=== PATIENT | male | born 1995 | race Caucasian/White ===

== ENCOUNTER 2023-10-29 16:06 | Observation (INO) | payer OTHER ==
[2023-10-29] MEDS ORDERED: Sodium Chloride 0.9% 1000 ML 1,000 ML IV STA (16:58)
[2023-10-29] MEDS ORDERED: PIPERACILLIN/TAZOBACTAM 3.375 GM in Sodium Chloride 100ML MINI-BAG PLUS 100 ML IV ONE (16:59)
--- NOTE | 2023-10-29 17:08 | ERPHSYRPT ---
- History of Present Illness Historian: patient Exam Limitations: no limitations Patient Subjective Stated Complaint: appendicitis Triage Nursing Assessment: Pt brought self to the ER, hypertensive, denies pain at this time, pulses normal, skin n/w/d, slight pain with palpatation, no difficulty breathing, doesn't appear to be in any distress Hx Influenza Vaccination/Date Given: No Hx Pneumococcal Vaccination/Date Given: No <LORE VERMA - Last Filed: 10/29/23 17:06> <HERRERA COOMBS - Last Filed: 10/29/23 17:41> - History of Present Illness Time Seen by Provider: 10/29/23 16:10 Physician History: 28-year-old is sent in ER from urgent care for CT abdomen pelvis positive for mild acute/early appendicitis. Patient reports having off-and-on right-sided abdominal pain for the last 5 or 6 days with some bloating sensation. No nausea or vomiting. Denies any diarrhea or constipation. No UTI symptoms. No fever or chills reported. Patient reports minimal pain on the right side currently. (LORE VERMA) Allergies/Adverse Reactions: No Known Drug Allergies Allergy (Verified 10/29/23 16:26) Home Medications: No Reportable Medications [No Reported Medications] 10/29/23 [History] Travel Risk - International Travel Have you traveled outside of the country in past 3 weeks: No - Coronavirus Screening Are you exhibiting any of the following symptoms?: No Close contact with a COVID-19 positive Pt in past 14-21 Days: No - Vaccine Status Have you recieved a Covid-19 vaccination: No <LORE VERMA - Last Filed: 10/29/23 17:06> - Review of Systems Constitutional: No Symptoms Eyes: No Symptoms Ears, Nose, & Throat: No Symptoms Respiratory: No Symptoms Cardiac: No Symptoms Abdominal/Gastrointestinal: Abdominal Pain Genitourinary Symptoms: No Symptoms Musculoskeletal: No Symptoms Skin: No Symptoms Neurological: No Symptoms Psychological: No Symptoms <LORE VERMA - Last Filed: 10/29/23 17:06> - Past Medical History Pertinent Past Medical History: No Neurological History: No Pertinent History Cardiac History: No Pertinent History Respiratory History: Asthma Endocrine Medical History: No Pertinent History Musculoskeletal History: No Pertinent History - Past Surgical History Past Surgical History: Yes Other Surgical History: mole biopsy on chest. gynacomastia surgery. wisdom teeth - Social History Smoking Status: Never smoker Exposure to second hand smoke: No Drug Use: none Patient Lives Alone: No <BAYRONLORE Kessler - Last Filed: 10/29/23 17:06> - Physical Exam General Appearance: no apparent distress, alert Eye Exam: PERRL/EOMI Ears, Nose, Throat Exam: normal ENT inspection Neck Exam: normal inspection, non-tender, supple, full range of motion Respiratory Exam: normal breath sounds, lungs clear Cardiovascular Exam: regular rate/rhythm, normal heart sounds Gastrointestinal/Abdomen Exam: soft, normal bowel sounds, tenderness (Mild tenderness right flank/right upper quadrant/right lower quadrant), No guarding, No rebound Back Exam: normal inspection, normal range of motion Extremity Exam: normal inspection, normal range of motion Neurologic Exam: alert, oriented x 3, cooperative, chief technician II-XII nml as tested Skin Exam: normal color SpO2 Interpretation: normal SpO2: 100 O2 Delivery: Room Air <LORE VERMA - Last Filed: 10/29/23 17:06> - Nursing Vital Signs Nursing Vital Signs: Initial Vital Signs Temperature 98.0 F 10/29/23 16:08 Pulse Rate 71 10/29/23 16:08 Blood Pressure 145/82 10/29/23 16:08 O2 Sat by Pulse Oximetry 100 10/29/23 16:08 Pain Scale Pain Intensity 0 Ordered Tests: Active Orders 24 hr Category Date Time Status IV Insertion STAT Care 10/29/23 16:58 Active NPO (ED) STAT Care 10/29/23 16:58 Active CBC W DIFF Stat Lab 10/29/23 17:00 Received CMP Stat Lab 10/29/23 17:00 Received LIPASE Stat Lab 10/29/23 17:00 Received UA W/RFX UR CULTURE Stat Lab 10/29/23 16:58 Ordered Medication Summary Generic Name Dose Route Start Last Admin Trade Name Freq PRN Reason Stop Dose Admin Sodium Chloride 1,000 mls @ 999 mls/hr 10/29/23 16:58 10/29/23 17:21 Sodium Chloride 0.9% 1000 Ml IV 10/29/23 17:58 999 mls/hr .Q1H1M STA Administration Discontinued Medications Generic Name Dose Route Start Last Admin Trade Name Freq PRN Reason Stop Dose Admin Piperacillin Sod/Tazobactam 100 mls @ 200 mls/hr 10/29/23 16:59 10/29/23 17:21 Sod 3.375 gm/ Sodium Chloride IV 10/29/23 17:28 200 mls/hr STAT ONE Administration Sodium Chloride Confirm 10/29/23 17:10 Sodium Chloride 100ml Mini-Bag Plus Administered 10/29/23 17:11 Dose 100 mls @ ud IV .STK-MED ONE Sodium Chloride Confirm 10/29/23 17:10 Sodium Chloride 0.9% 1000 Ml Administered 10/29/23 17:11 Dose 1,000 mls @ ud .ROUTE .STK-MED ONE Piperacillin Sod/Tazobactam Sod Confirm 10/29/23 17:09 Piperacillin/Tazobactam Sodium 3.375 Gm Vial Administered 10/29/23 17:10 Dose 3.375 gm IV .STK-MED ONE - Progress Progress: unchanged Discussed with : Ben Counseled pt/family regarding: lab results, diagnosis, rad results <HERRERA COOMBS - Last Filed: 10/29/23 17:41> - Progress Progress Note: 10/29/23 17:37 This patient was checked out to me at approximately 5:15 PM on 10/29/2023. I reviewed the patient's chart. Laboratory results pending. The CT scan of the abdomen pelvis without contrast that was performed earlier today from the urgent care was interpreted by the radiologist and I reviewed the impression. Impression states prominent appendix with minimal periappendiceal stranding favoring mild/early appendicitis. I spoke with Dr. Star Seaman. He is the general surgeon on-call. I reviewed the patient history, chief complaint and the findings on the CT scan of abdomen pelvis. He states that we can admit to him. We will place him on the Med[facility] floor. Will keep him n.p.o. He will be contacting the night warehouse manager with surgery time (HERRERA COOMBS) Medical Desision Making - Diagnostic Testing Diagnostic test were ordered, analyzed, and reviewed by me: Yes Radiological Interpretation: Reviewed by me, Teleradiologist Report - Risk of complications The pt has a high risk of morbidity or mortality based on: Decision regarding hospitilization or escalation of hosp level of care <HERRERA COOMBS - Last Filed: 10/29/23 17:41> <LORE VERMA - Last Filed: 10/29/23 17:06> - Departure Departure Disposition: Observation Critical Care Time: No <HERRERA COOMBS - Last Filed: 10/29/23 17:41> - Departure Clinical Impression: Acute appendicitis Condition: Stable Referrals: ROMERO MA MD [Primary Care Provider] - Follow up/PCP as directed
[2023-10-29] MEDS ORDERED: PIPERACILLIN/TAZOBACTAM IV ONE (17:09)
[2023-10-29] MEDS ORDERED: Sodium Chloride 0.9% 1000 ML 1,000 ML ONE ×2 (17:10→23:04)
[2023-10-29] MEDS ORDERED: Sodium Chloride 100ML MINI-BAG PLUS 100 ML IV ONE (17:10)
[2023-10-29 17:31] LABS: Absolute Neutrophil Ct (ANC) 2.83 x10^3/uL (1.4-6.9); Basophil (Absolute #) 0.05 x10^3/uL (0-0.4); Eosinophil % 2.7 % (0.00-5.0); Eosinophil (Absolute #) 0.13 x10^3/uL (0-0.5); Hematocrit 47.5 % (42-50); Hemoglobin 16.7 g/dL (12.5-18.0); IMMATURE GRAN # 0.02 x10^3u/L (0.00-0.03); IMMATURE GRAN % 0.4 % (0.00-0.4); Lymphocyte (Absolute #) 1.46 x10^3/uL (1.0-4.6); Lymphocytes % 30.2 % (24.0-44.0); Mean Cell Volume 88.1 fL (78-100); Mean Corpuscular Hgb Concent. 35.2 g/dL (32-36); Mean Platelet Volume 9.6 fL (7.5-11.0); Monocyte (Absolute #) 0.34 x10^3/uL (0.0-1.3); Neutrophil % 58.7 % (36.0-66.0); Platelet Count 221 x10^3/uL (150-450); Red Blood Count 5.39 x10^6/uL (4.1-5.6); Red Cell Distribution Width 12.2 % (11.5-14.0); White Blood Count 4.8 x10^3/uL (4.0-10.5)
[2023-10-29 17:40] LABS: ALBUMIN 4.7 g/dL (3.5-5.0); ANION GAP 12.3 MEQ/L (5-15); BILIRUBIN,TOTAL 0.8 mg/dL (0.2-1.3); Calcium 9.8 mg/dL (8.4-10.2); Creatinine 1 1.61 mg/dL (0.66-1.25); EST GLOMERULAR FILTRATION RATE 59.7 ML/MIN; Potassium 3.8 mmol/L (3.5-5.1)
[2023-10-29 19:44] LABS: Appearance Clear (Clear); Bacteria None Seen /HPF (None Seen); Bilirubin Negative (Negative); Blood Negative (Negative); Epithelial Cells None Seen /HPF (None Seen); Glucose, Urine Negative (Negative); Hyaline Casts NONE SEEN /LPF (0-2); Ketones 15 (Negative); Leukocyte Esterase Negative (Negative); Nitrite Negative (Negative); Ph 6.5 (4.6-8.0); Protein,Urine Dip Negative (Negative); RBC 0-2 /HPF (0-5); Specific Gravity 1.015 (1.005-1.030); Urobilinogen 0.2 mg/dL (0.2); WBC 0-2 /HPF (0-5)
[2023-10-29 19:45] LABS: ADD URINE CULTURE? NO (NO)
[2023-10-29] MEDS ORDERED: Sensorcaine 0.25% 10 ML ONE ×2 (19:46→19:49)
[2023-10-29] MEDS ORDERED: Lactated Ringers 1,000 ML IV ONE ×2 (20:05→20:14)
[2023-10-29] MEDS ORDERED: Versed 2 MG/2 ML Injection ONE (20:06)
[2023-10-29] MEDS ORDERED: DEXMEDETOMIDINE 80 MCG/20ML-NS IV ONE (20:06)
[2023-10-29] MEDS ORDERED: TORAdol 30 mg Injection ONE (20:06)
[2023-10-29] MEDS ORDERED: BRIDION 200MG/2ML IV ONE (20:06)
[2023-10-29] MEDS ORDERED: DIPRIVAN 200 MG/20 ML IV ONE (20:06)
[2023-10-29] MEDS ORDERED: Zofran 4 MG/2 ML VIAL ONE (20:06)
[2023-10-29] MEDS ORDERED: Zemuron 100 MG/10 ML ONE (20:06)
[2023-10-29] MEDS ORDERED: Decadron 4 MG INJ ONE (20:06)
[2023-10-29] MEDS ORDERED: Xylocaine-Mpf 2% 5 Ml Vial ONE (20:06)
[2023-10-29] MEDS ORDERED: SUBLIMAZE 100 MCG/2 ML ONE (20:07)
[2023-10-29] MEDS ORDERED: OFIRMEV 100 ML IV ONE (20:14)
[2023-10-29] MEDS ORDERED: Pre-Attached Lta Kit TP ONE (20:14)
[2023-10-29] MEDS ORDERED: MEFOXIN 2 GM PREMIX** 2 GM/50 ML ML IV ONE (20:38)
--- NOTE | 2023-10-29 20:42 | PCM.HP ---
History of Present Illness - Chief Complaint History of Present Illness: hx per chart review and d/w pt thursday ate fast food and had some mild abd pain. this waxed and waned with a little bloating. no n/v. no constipation no diarrhea. not really postprandial. talked to family and ecommended getting evaluated. ct with enlarged appendix with slight stranding around it. surg consulted. today he does have pain RLQ particularly when he presses on it or with certain activities. "- History of Present Illness Historian: patient Exam Limitations: no limitations Patient Subjective Stated Complaint: appendicitis Triage Nursing Assessment: Pt brought self to the ER, hypertensive, denies pain at this time, pulses normal, skin n/w/d, slight pain with palpatation, no difficulty breathing, doesn't appear to be in any distress Hx Influenza Vaccination/Date Given: No Hx Pneumococcal Vaccination/Date Given: No <LORE VERMA - Last Filed: 10/29/23 17:06> <HERRERA COOMBS - Last Filed: 10/29/23 17:41> - History of Present Illness Time Seen by Provider: 10/29/23 16:10 Physician History: 28-year-old is sent in ER from urgent care for CT abdomen pelvis positive for mild acute/early appendicitis. Patient reports having off-and-on right-sided abdominal pain for the last 5 or 6 days with some bloating sensation. No nausea or vomiting. Denies any diarrhea or constipation. No UTI symptoms. No fever or chills reported. Patient reports minimal pain on the right side currently. (LORE VERMA) Allergies/Adverse Reactions: No Known Drug Allergies Allergy (Verified 10/29/23 16:26) Home Medications: No Reportable Medications [No Reported Medications] 10/29/23 [History] Travel Risk - International Travel Have you traveled outside of the country in past 3 weeks: No - Coronavirus Screening Are you exhibiting any of the following symptoms?: No Close contact with a COVID-19 positive Pt in past 14-21 Days: No - Vaccine Status Have you recieved a Covid-19 vaccination: No <LORE VERMA - Last Filed: 10/29/23 17:06> - Review of Systems Constitutional: No Symptoms Eyes: No Symptoms Ears, Nose, & Throat: No Symptoms Respiratory: No Symptoms Cardiac: No Symptoms Abdominal/Gastrointestinal: Abdominal Pain Genitourinary Symptoms: No Symptoms Musculoskeletal: No Symptoms Skin: No Symptoms Neurological: No Symptoms Psychological: No Symptoms " Medications & Allergies Home Medications: Home Medication List No Reportable Medications [No Reported Medications] 10/29/23 [History Confirmed 10/29/23] Allergies/Adverse Reactions: Allergies Allergy/AdvReac Type Severity Reaction Status Date / Time No Known Drug Allergies Allergy Verified 10/29/23 16:26 - Past Medical History Past Medical History: No Neurological History: No Pertinent History Cardiac History: No Pertinent History Respiratory History: Asthma Endocrine Medical History: No Pertinent History Musculoskelatal History: No Pertinent History - Past Surgical History Past Surgical History: Yes Other Surgical History: mole biopsy on chest. gynacomastia surgery. wisdom teeth - Social History Smoking Status: Never smoker Exposure to second hand smoke: No Alcohol: Occasionally Drug Use: none - Physical Exam Vital Signs: Vital Signs - 24 hr Temp Pulse BP BP Pulse Ox 10/29/23 19:15 98.0 F 69 164/97 100 10/29/23 19:00 124/66 10/29/23 18:30 121/67 97 10/29/23 18:00 125/64 100 10/29/23 17:30 132/74 100 10/29/23 17:07 100 10/29/23 17:03 126/70 100 10/29/23 16:08 98.0 F 71 145/82 100 General Appearance: no apparent distress Neurologic Exam: alert, oriented x 3, cooperative Eye Exam: eyes nml inspection, No scleral icterus Neck Exam: normal inspection Respiratory Exam: No respiratory distress Cardiovascular Exam: regular rate/rhythm Gastrointestinal/Abdomen Exam: soft, tenderness Extremity Exam: normal inspection Skin Exam: warm, dry (abd rlq focal ttp no r/g.) Results - Labs Lab/Micro Results: Lab Results-Last 24 Hours 10/29/23 10/29/23 10/29/23 Range/Units 17:00 17:00 19:18 WBC 4.8 (4.0-10.5) x10^3/uL RBC 5.39 (4.1-5.6) x10^6/uL Hgb 16.7 (12.5-18.0) g/dL Hct 47.5 (42-50) % MCV 88.1 (78-100) fL MCH 31.0 (26-32) pg MCHC 35.2 (32-36) g/dL RDW 12.2 (11.5-14.0) % Plt Count 221 (150-450) x10^3/uL MPV 9.6 (7.5-11.0) fL Gran % 58.7 (36.0-66.0) % Immature Gran % (Auto) 0.4 (0.00-0.4) % Nucleat RBC Rel Count 0.0 (0.00-0.1) % Eos # (Auto) 0.13 (0-0.5) x10^3/uL Immature Gran # (Auto) 0.02 (0.00-0.03) x10^3u/L Absolute Lymphs (auto) 1.46 (1.0-4.6) x10^3/uL Absolute Monos (auto) 0.34 (0.0-1.3) x10^3/uL Absolute Nucleated RBC 0.00 (0.00-0.01) x10^3u/L Lymphocytes % 30.2 (24.0-44.0) % Monocytes % 7.0 (0.0-12.0) % Eosinophils % 2.7 (0.00-5.0) % Basophils % 1.0 (0.0-0.4) % Absolute Granulocytes 2.83 (1.4-6.9) x10^3/uL Basophils # 0.05 (0-0.4) x10^3/uL Sodium 137 (137-145) mmol/L Potassium 3.8 (3.5-5.1) mmol/L Chloride 100 (98-107) mmol/L Carbon Dioxide 28 (22-30) mmol/L Anion Gap 12.3 (5-15) MEQ/L BUN 18 (9-20) mg/dL Creatinine 1.61 H (0.66-1.25) mg/dL Estimated GFR 59.7 ML/MIN Glucose 86 (74-106) mg/dL Calcium 9.8 (8.4-10.2) mg/dL Total Bilirubin 0.80 (0.2-1.3) mg/dL AST 27 (17-59) U/L ALT 25 (0-50) U/L Alkaline Phosphatase 78 (38-126) U/L Serum Total Protein 8.0 (6.3-8.2) g/dL Albumin 4.7 (3.5-5.0) g/dL Lipase 80 (23-300) U/L Urine Color Yellow (Yellow) Urine Appearance Clear (Clear) Urine pH 6.5 (4.6-8.0) Ur Specific [place] 1.015 (1.005-1.030) Urine Protein Negative (Negative) Urine Glucose (UA) Negative (Negative) mg/dL Urine Ketones 15 A (Negative) Urine Blood Negative (Negative) Urine Nitrite Negative (Negative) Urine Bilirubin Negative (Negative) Urine Urobilinogen 0.2 (0.2) mg/dL Ur Leukocyte Esterase Negative (Negative) U Hyaline Cast (Auto) NONE SEEN (0-2) /LPF Urine Microscopic RBC 0-2 (0-5) /HPF Urine Microscopic WBC 0-2 (0-5) /HPF Ur Epithelial Cells None Seen (None Seen) /HPF Urine Bacteria None Seen (None Seen) /HPF Urine Culture Reflexed NO (NO) Assessment/Plan (1) Acute appendicitis Current Visit: Yes Status: Acute Assessment & Plan: 28yo concerning for acute appendicitis. unusual about 5 day course of intermittent pain then with constant pain today, focal tenderness on exam and ct with dilated appendix with a little stranding. reg discussion with patient this seems to be a subacute presentation might not even be appendicitis could observe/do antibiotic treatment vs surgery with risks benefits either mary and he just wants to proceed with appendectomy. . Code(s): K35.80 - UNSPECIFIED ACUTE APPENDICITIS
[2023-10-29] MEDS ORDERED: ATROPINE SULFATE 1MG ONE (21:02)
[2023-10-29] MEDS ORDERED: Zofran 4 MG/2 ML VIAL IV PRN (22:28)
[2023-10-29] MEDS ORDERED: Sodium Chloride 0.9% 1000 ML 1,000 ML IV SCH (22:28)
[2023-10-29] MEDS ORDERED: MORPHINE SULFATE 4 MG INJ IV PRN (22:28)
[2023-10-29] MEDS ORDERED: FEVERALL 650 MG PR PRN (22:28)
[2023-10-29] MEDS ORDERED: Dextrose 5%-Lr IV Solution 1000 ML 1,000 ML IV SCH (23:45)
[2023-10-30] MEDS ORDERED: NORCO 5/325 MG PO PRN (00:02)
[2023-10-30 00:32] VITALS: RESP 16
[2023-10-30 07:21] VITALS: BP 110/61; PULSE 85; TEMP 98.8; O2SAT 98
--- NOTE | 2023-10-30 09:17 | OP ---
SURGERY DATE/TIME: 10/29/20232037 PREOPERATIVE DIAGNOSIS: Acute appendicitis. POSTOPERATIVE DIAGNOSES: Acute appendicitis, nonperforated. PROCEDURE: Laparoscopic appendectomy. SURGEON: Star Seaman M.D. ANESTHESIA: General. ESTIMATED BLOOD LOSS: Minimal. CONDITION: Patient condition stable. COMPLICATIONS: None. SPECIMEN: Appendix. HISTORY: The patient is a 28-year-old male with a five day history of some intermittent abdominal pain but then constant abdominal pain right lower quadrant, presented to the emergency department. He had tenderness on exam in right lower quadrant without peritonitis. CT scan showed a dilated appendix and some stranding. Discussed with the patient this is concerning for appendicitis. His clinical course is a little atypical for acute appendicitis and could be more subacute. Discussed with him the risk of infection, bleeding, injury to nearby structure, hernia, negative examination, possible of being nonoperative and he elected to proceed with appendectomy. FINDINGS: Dilated tip of the appendix with a normal base, no perforation. DESCRIPTION OF PROCEDURE: The patient was brought to the operating room. General anesthesia was induced, routinely positioned, prepped and draped. Time out was performed. He received preoperative antibiotic. The Veress needle inserted in left upper quadrant. Pneumoperitoneum established. A 12 mm Optiview trocar placed in the left lower quadrant. A 5 mm supraumbilical and suprapubic trocars are placed and the abdomen was surveyed. The gallbladder is mildly distended. The appendix is however clearly abnormal. The tip of the appendix is dilated and injected. The base of the appendix was relatively spared, healthy base. The mesentery is taken with the LigaSure and then the base of the appendix was taken with a white load LUCHO stapler. The specimen is placed in a bag and removed through the 12 trocar site. The abdomen is re-inspected. Staple line satisfactory. There is good hemostasis. The 12 trocar is closed with 0 Vicryl interrupted suture passer. The suprapubic removed under direct visualization with supraumbilical used for desufflation and then removed. Marcaine had been injected. All port sites were closed with 4-0 Vicryl sutures. Steri-Strips and sterile dressings applied. All counts were correct. The patient tolerated the procedure well. He was extubated and taken to the recovery room in stable condition.
== END 2023-10-30 09:56 | disposition home or self-care (01) ==
LOC: ED 16:06 → MED SURG 22:24
PROVIDERS: ADMIT Surgery; ATTEND Surgery
DX: K35.80 Unspecified acute appendicitis (principal); Z20.828 Contact with and (suspected) exposure to other viral communicable diseases
CPT/HCPCS: 00840; 36000; 36415; 44970; 80053; 81001; 83690; 85025; 96360; 96365; 99140; 99284; G0378; J0461; J0694; J1100; J1885; J2250; J2270; J2405; J2704; J3010; A9270-GY